=== PATIENT | male | born 1980 | race Caucasian/White ===

== ENCOUNTER 2018-03-08 09:04 | Emergency (ER) | payer SELFPAY ==
[2018-03-08 09:13] VITALS: BP 139/79
--- NOTE | 2018-03-08 09:29 | UC ---
Lower Extremity/Ankle HPI - HPI Summary HPI Summary: 37 yo M c/o pain in R anterior lower leg since striking it on concrete 9 days ago. Pain has been mild but acutely worsened yesterday evening while out walking around (was [id number] with his children). He's been ambulatory w /o difficulty since injury, with exception of last night when he needed to rest. He's had no swelling, bruising, or breakage of skin since injury. He's taken ibuprofen with good relief of pain. When flexing/extending foot at ankle, he can feel the painful area moving up/down on anterior leg. Family hx non-contributory. meds reviewed. - History of Current Complaint Chief Complaint: UCLowerExtremity Stated Complaint: LEG INJURY Time Seen by Provider: 03/08/18 09:24 Hx Obtained From: Patient Pain Intensity: 8 - Allergies/Home Medications Allergies/Adverse Reactions: Allergies Allergy/AdvReac Type Severity Reaction Status Date / Time No Known Allergies Allergy Verified 03/08/18 09:14 PMH/Surg Hx/FS Hx/Imm Hx Previously Healthy: Yes - Surgical History Surgical History: Yes Surgery Procedure, Year, and Place: ear tubes adnoids - Social History Alcohol Use: Occasionally Substance Use Type: None Smoking Status (MU): Current Some Day Smoker Review of Systems Skin: Negative Musculoskeletal: Negative All Other Systems Reviewed And Are Negative: Yes Physical Exam Triage Information Reviewed: Yes Appearance: Well-Appearing, No Pain Distress, Well-Nourished Vital Signs: Initial Vital Signs Temp 99.7 F 03/08/18 09:10 Pulse 93 03/08/18 09:10 Resp 16 03/08/18 09:10 BP 139/79 03/08/18 09:10 Pulse Ox 99 03/08/18 09:10 Vital Signs Reviewed: Yes Eyes: Positive: Conjunctiva Clear Respiratory: Positive: No respiratory distress, No accessory muscle use Abdomen Description: Negative: Distended Musculoskeletal Exam: Normal Musculoskeletal: Positive: Other: - RLE w full ROM, no swelling, no TTP, no erythema, no ecchymosis, WWP Neurological: Positive: Alert, Muscle Tone Normal, Other: - ambulatory w normal gait Psychological: Positive: Age Appropriate Behavior Skin Exam: Normal Lower Extremity Course/Dx - Differential Dx/Diagnosis Differential Diagnosis/HQI/PQRI: Contusion, Sprain, Strain, Tendonitis Provider Diagnoses: muscle contusion Discharge - Sign-Out/Discharge Documenting (check all that apply): Patient Departure All imaging exams completed and their final reports reviewed: No Studies - Discharge Plan Condition: Stable Disposition: HOME Patient Education Materials: Contusion in Adults (ED) Referrals: Carlos Goddard MD [Primary Care Provider] - - Billing Disposition and Condition Condition: STABLE Disposition: Home
== END 2018-03-08 09:39 | disposition home or self-care (01) ==
LOC: UCEAST 09:04
DX: S80.11XA Contusion of right lower leg, initial encounter (principal); W22.8XXA Striking against or struck by other objects, initial encounter; Y92.9 Unspecified place or not applicable; Z72.0 Tobacco use
CPT/HCPCS: 99201; G0463